=== PATIENT | female | born 1995 | race Caucasian/White ===

== ENCOUNTER 2017-08-22 16:05 | Outpatient (CLI) | payer OTHER ==
[2013-06-14 20:31] VITALS: BP 94/54
[2017-08-22 16:28] LABS: BASOPHILS % 0.4 (0.0-1.5); EOSINOPHILS % 2.4 % (0.0-6.8); MEAN CORPUSCULAR HEMOGLOBIN 30.4 pg (28.0-34.0); MEAN CORPUSCULAR VOLUME 91.8 fl (80.0-100.0); MONOCYTES % 6.4 % (0.0-11.0); NEUTROPHILS # 4.5 # k/uL (1.4-7.7)
[2017-08-22 16:49] LABS: eGFR (African) > 60; eGFR (Non-African) > 60
[2017-08-22 23:11] LABS: SERUM IRON 133 ug/dL (37-145)
== END 2017-08-22 16:06 ==
LOC: LAB 16:05
PROVIDERS: ATTEND Nurse Practitioner Family
DX: R53.83 Other fatigue (principal)
CPT/HCPCS: 36415; 80053; 83540; 83550; 84439; 84443; 84703; 85025